=== PATIENT | male | born 1980 | race African-American/Black ===

== ENCOUNTER 2022-01-10 10:17 | Emergency (ER) | payer MEDICAID ==
[~2022-01-10] VITALS: Ht 170.2 cm; Wt 61.0 kg
[2022-01-10 10:20] VITALS: BP 108/76
[2022-01-10] MEDS ORDERED: ONDANSETRON HCL 4MG/2ML INJ IV STA (10:32)
[2022-01-10] MEDS ORDERED: SODIUM CHLORIDE 0.9% 1,000 ML IV ONE (10:45)
[2022-01-10] MEDS ORDERED: MAGNESIUM/ALUMINUM HYDROXIDE/SIMETHICONE 30ML UDC PO ONE (10:45)
[2022-01-10] MEDS ORDERED: ONDANSETRON 4MG ODT PO ONE (10:45)
[2022-01-10 11:03] LABS: BASOPHILS % 0.7 % (0.0-2.0); EOSINOPHILS % 0.4 % (0.0-5.0); HEMATOCRIT. 41.3 % (42.0-52.0); HEMOGLOBIN. 13.7 g/dL (14.0-18.0); LYMPHOCYTES % 30.6 % (20.0-50.0); MEAN CORPUSCULAR HEMOGLOBIN 29.2 pg (28.0-32.0); MEAN CORPUSCULAR VOLUME 87.9 fL (80.0-94.0); MEAN PLATELET VOLUME 6.5 fl (7.4-10.4); MONOCYTES % 11.1 % (2.0-8.0); NEUTROPHILS % 57.2 % (40.0-76.0); PLATELET 294 x1000/uL (130-400); RED CELL DISTRIBUTION WIDTH 14.9 % (11.6-14.6)
[2022-01-10 11:13] LABS: CHLORIDE 95 mEq/L (98-107)
[2022-01-10] MEDS ORDERED: ONDA4TAB11 PO (11:49)
== END 2022-01-10 12:36 | disposition home or self-care (01) ==
LOC: ER 10:17
DX: A08.4 Viral intestinal infection, unspecified (principal)
CPT/HCPCS: 36415; 80053; 83690; 85025; 99283; J7030; Q0162